=== PATIENT | female | born 1940 | race Caucasian/White ===

== ENCOUNTER 2016-12-18 10:09 | Emergency (ER) | payer MEDICARE, BC ==
[~2016-12-18 10:09] MED LIST: ASCORBIC ACID500 MG PO; BACITRACIN--O.0.9 GM TP; BETADINE DPS1 GM TP; CALCIUM 600 +1 EACH PO; CEPACOL SORE T1 EACH PO; COLACE-DPS100 MG PO; DAILY MULTIPLE1 EAC1 PO; DULCOLAX-DPS10 MG PR; DUONEB DPS3 ML IH; ELAVIL-DPS50 MG PO; EX-LAX15 MG PO; HYDROCODONE 5MG/5 MG PO; MAALOX DPS30 ML PO; MILK OF MAGNESI10 ML PO; NORVASC5 MG PO; PRILOSEC DPS20 MG PO; SENOKOT DPS8.6 MG PO; SENOKOT S1 TAB PO; SURFAK DPS240 MG PO; TYLENOL DPS325 MG PO; VALIUM-DPS5 MG PO
--- NOTE | 2016-12-19 06:22 | ER ---
ADMIT: 12/18/2016 RM/LOC: ER [facility] MR#: [id number] [address] NILAY PATEL [address] [place] [address] Emergency Room Report SEX: F AGE: 76 : 1940 DATE: 12/18/2016 TIME: 1009 hours. Please refer to my T-sheet for complete H and P. Briefly, patient is a 76- year-old who was getting up when she caught her feet on her bed sheets. She fell landing on her face and her neck hurts and her face hurts. No loss of consciousness. She is not anticoagulated. Rates pain 7/10. Here for evaluation. She did have a bloody nose on the right side that has resolved. PHYSICAL EXAMINATION: VITAL SIGNS: Her blood pressure is 160/88, pulse 106, respirations 20, temp 97, and sat 98%. GENERAL: No acute distress. HEENT: Head reveals an abrasion contusion to her right maxillary prominence and her nasal bridge. She has no bony prominence tenderness. Orbits are intact. No entrapment. TMs are clear. NECK: Soft, supple. Diffusely tender. Really does not hurt in midline, but just slightly. LUNGS: Clear. HEART: Regular. ABDOMEN: Soft. SKIN: No rash. NEUROLOGIC: Alert and oriented, nonfocal. EMERGENCY DEPARTMENT COURSE: The C-spine x-ray showed no fracture. I offered her pain meds, she refused. I had a long discussion with her, she was ready for discharge. ASSESSMENT: 1. Facial/nasal contusion. She may have a small nasal fracture, but her nose is midline. No abnormalities. No septal hematoma. 2. Cervical strain. 3. Fall. PLAN: Rest, fall precautions, return if worse. Continue medications and Tylenol. Follow up with Dr. Saldana. Segun Ramirez MD/ nicole JOB #: [id number] CC: Segun Ramirez MD, Attending Physician Melany Saldana MD, Family Physician
[2017-01-28] MEDS ORDERED: ELAVIL-DPS50 MG PO (18:21)
[2017-01-28] MEDS ORDERED: AMBIEN DPS5 MG PO (18:21)
[2017-01-28] MEDS ORDERED: NORVASC5 MG PO (18:21)
[2017-01-28] MEDS ORDERED: THERA1 EACH PO (18:21)
[2017-01-28] MEDS ORDERED: PROBIOTIC1 EAC2 PO (18:22)
[2017-01-28] MEDS ORDERED: MAGNESIUM500 MG PO (18:22)
[2017-01-28] MEDS ORDERED: VITAMIN C500 M1 PO (18:22)
[2017-01-28] MEDS ORDERED: CALCIUM 600 +1 EAC9 PO (18:23)
[2017-01-28] MEDS ORDERED: EX-LAX15 MG PO (18:23)
== END 2016-12-18 12:13 | disposition home or self-care (01) ==
LOC: ER 10:09
DX: S16.1XXA Strain of muscle, fascia and tendon at neck level, initial encounter (principal); S00.33XA Contusion of nose, initial encounter; W22.8XXA Striking against or struck by other objects, initial encounter; Y92.009 Unspecified place in unspecified non-institutional (private) residence as the place of occurrence of the external cause

== ENCOUNTER 2017-01-26 18:03 | Observation (INO) | payer MEDICARE, BC ==
[~2017-01-26] VITALS: Ht 157.5 cm; Wt 66.4 kg
[2017-01-28] MEDS ORDERED: AMBIEN DPS5 MG PO (18:21)
[2017-01-28] MEDS ORDERED: ELAVIL-DPS50 MG PO (18:21)
[2017-01-28] MEDS ORDERED: THERA1 EACH PO (18:21)
[2017-01-28] MEDS ORDERED: NORVASC5 MG PO (18:21)
[2017-01-28] MEDS ORDERED: VITAMIN C500 M1 PO (18:22)
[2017-01-28] MEDS ORDERED: PROBIOTIC1 EAC2 PO (18:22)
[2017-01-28] MEDS ORDERED: MAGNESIUM500 MG PO (18:22)
[2017-01-28] MEDS ORDERED: EX-LAX15 MG PO (18:23)
[2017-01-28] MEDS ORDERED: CALCIUM 600 +1 EAC9 PO (18:23)
--- NOTE | 2017-01-30 19:49 | ER ---
ADMIT: 01/26/2017 RM/LOC: [address] [facility] MR#: [id number] [address] NILAY PATEL [address] [place] [address] Emergency Room Report SEX: F AGE: 76 : 1940 DATE: 01/26/2017 CHIEF COMPLAINT: Numbness, right hand, right face. HISTORY OF PRESENT ILLNESS: This is a pleasant 76-year-old female, who presents to the department complaining of numbness in the right hand and right side of her face since around 4:30 in the afternoon. The patient states that approximately 2 hours ago, she began having acute onset numbness and heaviness in her right hand and some numbness and tingling about the right side of her mouth. The patient otherwise denies any weakness in her extremities, any problems with her vision, impaired speech or swallowing or inability to walk. She typically is alert and oriented x4 and walks without assistance. Denies any fevers, chills, swelling, chest pain, back pain, headache, or altered mental status. She did have an injection at Dr. Mustafa's office by Melissa yesterday, which she reports two injections to the right shoulder as well as the one injection to the right knee. PAST MEDICAL HISTORY: Significant for a fall in November 2016, which she states was unremarkable other than some swelling to her nose. No CT was performed at this time. She has a history of hypertension and GERD as well as a lumbar spine back surgery. MEDICATIONS: She takes Ambien and amitriptyline to help her sleep, Norvasc as well as Prilosec. ALLERGIES: NO KNOWN DRUG ALLERGIES. COURSE IN THE EMERGENCY ROOM: The patient was seen and examined. I did complete NIH stroke scale and found no reportable abnormalities. Neuro exam was unremarkable. I did do some pinprick testing to the right distal ADMIT: 01/26/2017 RM/LOC: [address] [facility] MR#: [id number] [id number] NILAY PATEL [address] [place] [address] Emergency Room Report SEX: F AGE: 76 : 1940 extremity which she was able to accurately distinguish sharp and dull. She continued to complain of numbness and tingling in her right hand as well as her right perioral area throughout her stay. I did complete a head CT which was negative. Basic labs including CBC and BMP were completed, within normal limits other than a white count of 15.8, which I believe can be accounted for secondary to the cortisone injections yesterday. I did discuss this patient with Dr. Augustine, who felt it was appropriate to admit this patient observation overnight as her symptoms continue to persist in the department. IMPRESSION: Right upper extremity paresthesia, right perioral paresthesia. DISPOSITION: The patient was admitted observation in the care of Dr. Augustine. EMMA Reis / Demarco Nelson MD / nicole JOB #: [id number] CC: Melany Saldana MD, Attending Physician Melany Saldana MD, Family Physician
== END 2017-01-27 14:40 | disposition home or self-care (01) ==
LOC: ER 18:03 → 4PCU 20:20
PROVIDERS: ADMIT Internal Medicine Infectious Disease
DX: R20.2 Paresthesia of skin (principal); I10 Essential (primary) hypertension; M50.321 Other cervical disc degeneration at C4-C5 level; G47.00 Insomnia, unspecified; K21.9 Gastro-esophageal reflux disease without esophagitis; Z98.890 Other specified postprocedural states; Z91.81 History of falling

== ENCOUNTER → 2017-02-27 | Outpatient (CLI) | payer MEDICARE, BC ==
[~2017-02-27] MED LIST changes: +AMBIEN DPS5 MG PO; +CALCIUM 600 +1 EAC9 PO; +MAGNESIUM500 MG PO; +PROBIOTIC1 EAC2 PO; +THERA1 EACH PO; +VITAMIN C500 M1 PO
== END | disposition home or self-care (01) ==
LOC: PTH.S 10:03 → RAD.S 10:45
DX: R20.0 Anesthesia of skin (principal); M51.26 Other intervertebral disc displacement, lumbar region; M47.812 Spondylosis without myelopathy or radiculopathy, cervical region